=== PATIENT | male | born 1990 | race Two or more races ===

== ENCOUNTER 2024-02-08 03:49 | Inpatient (IN) | payer BC, SELFPAY ==
[2024-02-08] VITALS (7 sets, daily range): BP systolic 119–145; BP diastolic 80–91; PULSE 59–92; RESP 15–18; TEMP 36–36.8; O2SAT 97–100; BMI 32.5
--- NOTE | 2024-02-08 | ECG_ITS ---
Test Reason : ABD PAIN/CHEST PAIN Blood Pressure : / mmHG Vent. Rate : 064 BPM Atrial Rate : 064 BPM P-R Int : 212 ms QRS Dur : 092 ms QT Int : 354 ms P-R-T Axes : 006 027 024 degrees QTc Int : 365 ms Sinus rhythm with 1st degree A-V block Otherwise normal ECG No previous ECGs available Referred By: Generic ED Physician Electronically Signed By:LIDA SWARTZ MD
--- NOTE | ~2024-02-08 | US_ITS ---
EXAMINATION: US ABDOMEN LIMITED CLINICAL INFORMATION: Pain. COMPARISON: None available. TECHNIQUE: Real-time imaging of the right upper quadrant abdominal viscera. FINDINGS: PANCREAS: The visualized portions of the pancreas is within normal limits. The tail of the pancreas is obscured. LIVER: Normal. The liver is normal in size. The liver contour is normal. Parenchymal echogenicity is normal. No focal hepatic lesion. There is no intrahepatic biliary duct dilatation seen. GALLBLADDER: Multiple shadowing gallbladder calculi are seen. There is also a small amount of faintly echogenic nonshadowing material within the gallbladder consistent with sludge. There is borderline gallbladder wall thickening up to 3.4 mm. The patient did report tenderness when scanning the right upper quadrant. COMMON BILE DUCT: Normal in caliber measuring 0.3 cm in diameter. RIGHT KIDNEY: Normal. No hydronephrosis. No renal calculi or focal parenchymal lesions. The kidney measures 12.1 cm in maximum dimension. FREE FLUID: None. US/US abdomen limited IMPRESSION: Cholelithiasis with borderline gallbladder wall thickening and tenderness when scanning the right upper quadrant. Consider acute cholecystitis. Correlation needed.
[2024-02-08 04:04] LABS: MANUAL DIFF FLAG NO
[2024-02-08 04:06] LABS: Basophils Absolute Auto 0.1 X10*3/uL (0.0-0.2); Basophils Percent Auto 0.8 % (0-2); Eosinophils Absolute Auto 0.2 X10*3/uL (0.0-0.4); Eosinophils Percent Auto 2.2 % (0-4); Hematocrit 44.2 % (42.0-52.0); Hemoglobin 15.5 g/dl (14.0-18.0); Imm Gran Abs Auto 0.02 X10*3/uL (0.00-0.03); Imm Gran Pct Auto 0.3 % (0.0-0.4); Lymphocytes Absolute Auto 2.6 X10*3/uL (1.2-4.9); Lymphocytes Percent Auto 33.5 % (20-40); Mean Corpuscular HGB Conc 35.1 g/dl (31.0-36.0); Mean Corpuscular Hemoglobin 27.9 pg (27.0-33.0); Mean Corpuscular Volume 79.6 fL (80.0-98.0); Mean Platelet Volume 10.6 fL (9.4-12.4); Monocytes Absolute Auto 0.6 X10*3/uL (0.1-1.2); Monocytes Percent Auto 7.5 % (2-11); Neutrophils Absolute Auto 4.3 x10*3/uL (2.0-8.3); Neutrophils Percent Auto 55.7 % (45-73); Platelet Count 180 X10*3/uL (160-400); Red Blood Count 5.55 X10*6/uL (4.60-5.80); Red Cell Distribution Width 13.6 % (11.0-16.0); White Blood Count 7.8 X10*3/uL (4.8-10.8)
[2024-02-08 04:21] LABS: Alanine Aminotransferase 18 U/L (0-40); Albumin Level 4.1 g/dL (3.5-5.0); Alkaline Phosphatase 82 U/L (39-117); Anion Gap 13 (12-20); Aspartate Amino Transferase 16 U/L (5-37); Bilirubin Total 0.4 mg/dL (0.0-1.0); Blood Urea Nitrogen 14 mg/dL (9-16); Calcium 9.5 mg/dL (8.4-10.2); Carbon Dioxide 25 mmol/L (22-29); Chloride 104 mmol/L (96-108); Creatinine Clr Calc Pharmacy 162.3; Estimated Glomerular Filt Rate > 60; Glucose Random 92 mg/dL (60-115); Potassium 4.1 mmol/L (3.3-5.1); Sodium 138 mmol/L (135-145); Total Protein 7.8 g/dL (6.5-8.0)
--- NOTE | 2024-02-08 04:24 | PC.NURSE ---
pt from home, a&ox4, respirations even and unlabored, pt reporting onset of epigastric pain x12 hours, reports it started after eating lunch. pt denies chest pain at this time. pt denies n/v/d. 20G placed in left ac, labs obtained and sent.
[2024-02-08 04:27] LABS: Troponin-I High Sensitivity < 2.7 ng/L (<3.5-35.0)
--- NOTE | 2024-02-08 05:01 | ED.GENADULT ---
HPI - General Adult General Chief complaint: Abdominal Pain Stated complaint: abdominal pain Time Seen by Provider: 02/08/24 05:01 History of Present Illness ED Provider: Sarita MARQUEZ narrative: The patient is an ordinarily healthy 33-year-old male who has had upper abdominal pain, primarily in the right upper quadrant, that has been bothering him significantly over the last 3 days. The symptoms are exacerbated by eating. He says he has been having mild episodes of pain intermittently for a couple of weeks and more consistently over the last 3 days. No definite fever. No nausea or vomiting. No diarrhea. No history of any abdominal surgeries. Related Data Allergies Allergy/AdvReac Type Severity Reaction Status Date / Time No Known Allergies Allergy Verified 02/08/24 03:56 Review of Systems Review of Systems: Yes all other systems are reviewed and are negative [facility] Social History Social History Alcohol intake: current Alcohol intake frequency: holidays/special occasions only Smoked in Last 30 Days: No Use of substances other than those prescribed or required for medical reasons: No Advance Directives: No Advance Directives Information Provided: No Do you have a plan to hurt others: No Plan Physical Exam ED Vital Signs: Vital Signs - 24 hr 02/08/24 03:55 02/08/24 06:33 Temperature 98.2 F 98.0 F Pulse Rate 92 67 Respiratory Rate 18 15 Blood Pressure 145/83 H 126/89 Pulse Oximetry 100 97 Oxygen Delivery Method Room Air Room Air BMI result Body Mass Index 32.5 Const Other: The patient is a well-developed, healthy looking 33-year-old who was awake and alert, pleasant and cooperative. He does not appear in overt distress. HENMT Other: Face is symmetrical. Mucous membranes moist. Eyes Other: Pupils are round equal, conjunctivae clear Neck Other: Moving his neck easily Resp Effort & Inspection: normal respiratory effort Auscultation: clear to auscultation bilaterally Cardio Rate: regular rate Rhythm: regular rhythm Heart sounds: S1 normal heart sound present and S2 normal heart sound present GI Other: The patient has right upper quadrant abdominal tenderness. The epigastrium and the remainder of the abdomen seem nontender. Skin Other: Skin is dry and unremarkable Neuro Other: The patient is awake and alert with a normal mental status. Cranial nerves are grossly intact. He moves his extremities symmetrically and appropriately. He seems grossly neurologically intact. Extrem Other: Extremities are unremarkable. No peripheral edema. Medications Administered Generic Name Dose Route Start Last Admin Trade Name Freadams PRN Reason Stop Dose Admin Sodium Chloride 1,000 mls @ 999 mls/hr 02/08/24 07:15 02/08/24 07:24 Ns IV 02/08/24 08:15 999 mls/hr .Q1H1M AGNIESZKA Administration Discontinued Medications Generic Name Dose Route Start Last Admin Trade Name Holland PRN Reason Stop Dose Admin Ketorolac Tromethamine 10 mg 02/08/24 07:03 02/08/24 07:24 Ketorolac Tromethamine 15 Mg/Ml Vial IVPUSH 02/08/24 07:04 10 mg ONCE ONE Administration Sucralfate 1 gm 02/08/24 05:52 02/08/24 06:32 Sucralfate Oral Suspension 1 Gm/10 Ml Oral.Susp PO 02/08/24 05:53 1 gm ONCE ONE Administration Medical Decision Making Medical Decision Making [facility] Narrative: The patient is a very pleasant 33-year-old who describes episodes of postprandial right upper quadrant pain intermittently over the last couple of months and more significantly over the last 2 weeks. Tonight he presents with pain that has been constant since around 22:00. The patient's labs were unremarkable but he was fairly tender in the right upper quadrant. Fortunately an laboratory development technician was available to perform an ultrasound which shows cholelithiasis, borderline gallbladder wall thickening, and a positive sonographic Linda's. The patient was given ketorolac for his pain. Dr. Obregon of General surgery was consulted who came to see the patient and will be admitting the patient for further care. Lab Data 02/08/24 04:00 02/08/24 04:00 Labs: Lab Results 02/08/24 Range/Units 04:00 WBC 7.8 (4.8-10.8) X10*3/uL RBC 5.55 (4.60-5.80) X10*6/uL Hgb 15.5 (14.0-18.0) g/dl Hct 44.2 (42.0-52.0) % MCV 79.6 L (80.0-98.0) fL MCH 27.9 (27.0-33.0) pg MCHC 35.1 (31.0-36.0) g/dl RDW 13.6 (11.0-16.0) % Plt Count 180 (160-400) X10*3/uL MPV 10.6 (9.4-12.4) fL Immature Gran % (Auto) 0.3 (0.0-0.4) % Neut % (Auto) 55.7 (45-73) % Lymph % (Auto) 33.5 (20-40) % [place] % (Auto) 7.5 (2-11) % Eos % (Auto) 2.2 (0-4) % Baso % (Auto) 0.8 (0-2) % Lymph # (Auto) 2.6 (1.2-4.9) X10*3/uL [place] # (Auto) 0.6 (0.1-1.2) X10*3/uL Eos # (Auto) 0.2 (0.0-0.4) X10*3/uL Baso # (Auto) 0.1 (0.0-0.2) X10*3/uL Abs Immat Gran (auto) 0.02 (0.00-0.03) X10*3/uL Absolute Neuts (auto) 4.3 (2.0-8.3) x10*3/uL Absolute Nucleated RBC 0.000 (0.0-0.012) X10*3/uL Nucleated RBC % (auto) 0.0 (0.0-0.2) /100WBC Sodium 138 (135-145) mmol/L Potassium 4.1 (3.3-5.1) mmol/L Chloride 104 (96-108) mmol/L Carbon Dioxide 25 (22-29) mmol/L Anion Gap 13 (12-20) BUN 14 (9-16) mg/dL Creatinine 0.84 (0.5-1.4) mg/dL Estim Creat Clear Calc 162.3 Estimated GFR > 60 Random Glucose 92 (60-115) mg/dL Calcium 9.5 (8.4-10.2) mg/dL Total Bilirubin 0.4 (0.0-1.0) mg/dL AST 16 (5-37) U/L ALT 18 (0-40) U/L Alkaline Phosphatase 82 (39-117) U/L Troponin I High Sens < 2.7 (<3.5-35.0) ng/L C-Reactive Protein 0.57 H (< or = 0.50) mg/dL Total Protein 7.8 (6.5-8.0) g/dL Albumin 4.1 (3.5-5.0) g/dL Lipase 43 (8-78) U/L Discharge Plan Discharge Patient Disposition: Admitted As Inpatient Print Language: Taiwanese
[2024-02-08 05:27] LABS: C Reactive Protein 0.57 mg/dL (< or = 0.50); Lipase 43 U/L (8-78)
[2024-02-08] MEDS: Sucralfate Oral Suspension 1 GM/10 ML ORAL.SUSP PO (06:32)
[2024-02-08] MEDS: 0.9 % Sodium Chloride 1,000 ML 999 ML IV (07:24)
[2024-02-08] MEDS: Ketorolac Tromethamine 15 MG/ML VIAL 10 MG IVPUSH (07:24)
--- NOTE | 2024-02-08 08:07 | PM.HPGS ---
History of Present Illness History of Present Illness Date of Service: 02/08/24 Chief complaint: Acute cholecystitis Narrative: Jose L Acevedo is a 33 year old male presenting with complaints of abdominal pain of 3 days' duration. The pain is mainly located in the epigastrium and right upper quadrant with radiation to the right back. He has had previous episodes of similar pain mainly in the epigastrium, never to the severity of his current episode. On presentation to the emergency department his pain was 10/10 in severity. Currently he is at 4/10 after receiving Toradol. He denies nausea, vomiting, fever or chills. Previous episodes developed several hours after eating greasy foods but resolved spontaneously. Workup in the emergency department revealed normal laboratories however an ultrasound of the abdomen revealed a gallbladder filled with gallstones as well as a stone at the neck of the gallbladder. There is moderate wall thickening without pericholecystic fluid. Common bile duct is normal. He has admitted to the surgical service for management of his acute cholecystitis due to cholelithiasis. Review of Systems Review of Systems: Yes all other systems are reviewed and are negative Gastrointestinal: Gastrointestinal: Reports abdominal pain, Denies constipation, Denies loose stools, Denies nausea and Denies vomiting PMFSH Social History Social History Alcohol intake: current Alcohol intake frequency: holidays/special occasions only Smoked in Last 30 Days: No Use of substances other than those prescribed or required for medical reasons: No Advance Directives: No Advance Directives Information Provided: No Do you have a plan to hurt others: No Plan Meds Allergies Allergy/AdvReac Type Severity Reaction Status Date / Time No Known Allergies Allergy Verified 02/08/24 03:56 Active Medications: Current Medications Calcium Carbonate (Calcium Carbonate 750 Mg Tab.Chew) 750 mg PO Q4H PRN PRN Reason: Heartburn Hydromorphone HCl (Hydromorphone Hcl 0.5 Mg/0.5 Ml Syringe) 0.5 mg IVPUSH Q3H PRN; Protocol PRN Reason: Pain, Severe (Pain Scale 7-10) Sodium Chloride (Ns) 1,000 mls @ 999 mls/hr IV .Q1H1M AGNIESZKA Stop: 02/08/24 08:15 Last Admin: 02/08/24 07:24 Dose: 999 mls/hr Acetaminophen (Ofirmev) 1,000 mg in 100 mls @ 400 mls/hr IV Q6H [facility] Stop: 02/09/24 02:29 Dextrose/Lactated Ringer's (D5lr) 1,000 mls @ 125 mls/hr IVCONT .Q8H [facility] Piperacillin Sod/Tazobactam (Sod 3.375 gm/ Sodium Chloride) 50 mls @ 100 mls/hr IV Q6H [facility] Magnesium Hydroxide (Milk Of Magnesia 30 Ml Oral.Susp) 30 ml PO DAILY PRN PRN Reason: Constipation Melatonin (Melatonin 3 Mg Tablet) 6 mg PO BEDTIME PRN PRN Reason: Insomnia Ondansetron HCl (Ondansetron Hcl 4 Mg/2 Ml Vial) 4 mg IVPUSH QID PRN PRN Reason: Nausea Oxycodone HCl (Oxycodone Hcl Immed Release 5 Mg Tablet) 5 mg PO Q6H PRN PRN Reason: Pain, Moderate(Pain Scale 4-6) Sodium Chloride (0.9 % Sodium Chloride Flush 3 Ml Syringe) 3 ml IVFLUSH QSHIFT [facility] Physical Exam Vital Signs: Vital Signs: Last Vital Signs Temp 98.0 F 02/08/24 06:33 Pulse 67 02/08/24 06:33 Resp 15 02/08/24 06:33 BP 126/89 02/08/24 06:33 Pulse Ox 97 02/08/24 06:33 O2 Del Method Room Air 02/08/24 06:33 BMI result Body Mass Index 32.5 Const: General: cooperative and no acute distress Nutritional Appearance: well nourished Orientation/consciousness: patient oriented x3 Limitations: no limitations HEENT: Head: Yes normocephalic and Yes atraumatic Ears: hearing grossly normal bilaterally Resp: Effort & Inspection: normal respiratory effort, no audible wheezes, no cough and no respiratory distress Cardio: Jugular venous distension: no JVD GI: Inspection: Yes normal to inspection Palpation (GI): Soft to palpation, Tenderness to palpation present (GI) in the RUQ and Linda's sign positive; with no rebound tenderness and Rovsing's sign negative, no guarding and not rigid Percussion: Yes normal to percussion Auscultation: normal bowel sounds Rectal Exam - Male: Yes deferred Skin: Other: Warm, dry, no rash, no jaundice Neuro: General: patient oriented x3 Extrem: General: Yes no clubbing, cyanosis or edema Results Results Labs: Short CBC 02/08/24 Range/Units 04:00 WBC 7.8 (4.8-10.8) X10*3/uL Hgb 15.5 (14.0-18.0) g/dl Hct 44.2 (42.0-52.0) % Plt Count 180 (160-400) X10*3/uL BMP 02/08/24 04:00 Sodium 138 Potassium 4.1 Chloride 104 Carbon Dioxide 25 BUN 14 Creatinine 0.84 Calcium 9.5 Liver Function 02/08/24 Range/Units 04:00 Total Bilirubin 0.4 (0.0-1.0) mg/dL AST 16 (5-37) U/L ALT 18 (0-40) U/L Alkaline Phosphatase 82 (39-117) U/L Albumin 4.1 (3.5-5.0) g/dL Assessment and Plan (1) Acute cholecystitis: Status: Acute Plan 33-year-old male patient presenting to the emergency department with complaints of right upper quadrant abdominal pain of 3 days' duration. Workup reveals gallstones at the neck of the gallbladder with moderate wall thickening. We discussed non operative management with diet restrictions verses laparoscopic/possible open cholecystectomy. I recommended admission for IV antibiotics with laparoscopic or possible open cholecystectomy in the a.m.. After discussion of the procedure, risks, and alternatives, he consents to the surgery. Quality Stroke Does the patient have a stroke diagnosis?: No VTE Prior VTE?: No VTE Risk Level:: Surgical - low VTE Device Contraindication: N/A - Device Ordered VTE Drug Contraindication: Treatment Not Indicated Procedures Date of Service Date of Service: 02/08/24
[2024-02-08] MEDS: Piperacillin Sodium/Tazobactam 3.375 GM in 0.9 % Sodium Chloride 50 ML IV ×3 (08:57→21:08)
--- NOTE | 2024-02-08 09:01 | PC.NURSE ---
per dr britt - no need to draw blood cultures prior to abx administration.
--- NOTE | 2024-02-08 09:05 | PHA.MEDREC ---
Pharmacy Consult ? Medication Reconciliation Pharmacy has completed the medication reconciliation.
[2024-02-08] MEDS: Dextrose 5 % and Lactated Ring 1,000 ML 125 ML IVCONT ×2 (09:49→18:11)
[2024-02-08] MEDS: oxyCODONE HCl Immed Release 5 MG TABLET PO (11:08)
[2024-02-08] MEDS: Acetaminophen 1,000 MG/100 ML PIGGYBACK 400 MG IV ×2 (13:27→20:20)
--- NOTE | 2024-02-08 14:17 | MHC.CM.PN ---
PT REPORTS HE LIVES WITH HIS PARENTS BUT ALSO STAYS WITH HIS GF MUCH OF THE TIME HE IS INDEPENDENT WITH CARE, HAS NO DME AND NO SERVICES PT DECLINES TO COMPLETE A HCP HE HAS NO PCP, LIST PROVIDED DCP: PT WILL DC HOME WITH NO SERVICES VIA PRIVATE TRANSPORT
[2024-02-09] VITALS (12 sets, daily range): BP systolic 110–140; BP diastolic 67–89; PULSE 60–79; RESP 16–20; TEMP 36–36.6; O2SAT 97–100
[2024-02-09] MEDS: Dextrose 5 % and Lactated Ring 1,000 ML 125 ML IVCONT ×3 (02:05→23:07)
[2024-02-09] MEDS: Acetaminophen 1,000 MG/100 ML PIGGYBACK 400 MG IV (02:07)
[2024-02-09] MEDS: Piperacillin Sodium/Tazobactam 3.375 GM in 0.9 % Sodium Chloride 50 ML IV ×2 (02:33→07:23)
[2024-02-09] MEDS: oxyCODONE HCl Immed Release 5 MG TABLET PO ×3 (07:22→22:28)
--- NOTE | 2024-02-09 12:21 | MHC.SHP ---
Pre-Procedural Eval Section A - 24 Hr Update-Section A only Date of Service: 02/09/24 The patient is an INPATIENT: Yes Changes since office visit: Yes Patient answered all questions; No Cold of Flu in the past 2 weeks, No New Medical Problems and No Changes in Medication The patient has been examined within 24 hours of the surgical procedure. The History & Physical has been completed within 30 days and I have reviewed it.: Yes Section B - Complete if H&P > 30 days Chief Complaint: Acute cholecystitis Allergies: Allergies Allergy/AdvReac Type Severity Reaction Status Date / Time No Known Allergies Allergy Verified 02/08/24 03:56 Plan Diagnosis/Plan: Unchanged I have reviewed the history and physical and performed a pertinent physical examination on my patient. No changes have occurred unless specified. Time Spent With Patient Time: Total time managing care of this patient today ____ minutes.
--- NOTE | 2024-02-09 13:07 | HO.ANESPROP2 ---
HPI - Anesthesia Eval Consult details Narrative: for lap cholecystectomy PMFSH Active Problems Active Problems: All Active Problems Acute cholecystitis (Acute) Family History Family history of problems with anesthesia: No Surgical History History of Problems with Anesthesia: No Social History Social History Alcohol intake: current Alcohol intake frequency: holidays/special occasions only Patient Tobacco Use Status: Never used Tobacco service: No Meds Allergies Allergy/AdvReac Type Severity Reaction Status Date / Time No Known Allergies Allergy Verified 02/08/24 03:56 Active Medications: Current Medications Calcium Carbonate (Calcium Carbonate 750 Mg Tab.Chew) 750 mg PO Q4H PRN PRN Reason: Heartburn Hydromorphone HCl (Hydromorphone Hcl 0.5 Mg/0.5 Ml Syringe) 0.5 mg IVPUSH Q3H PRN; Protocol PRN Reason: Pain, Severe (Pain Scale 7-10) Dextrose/Lactated Ringer's (D5lr) 1,000 mls @ 125 mls/hr IVCONT .Q8H [facility] Last Infusion: 02/09/24 10:42 Dose: Infused Piperacillin Sod/Tazobactam (Sod 3.375 gm/ Sodium Chloride) 50 mls @ 100 mls/hr IV Q6H [facility] Last Infusion: 02/09/24 07:56 Dose: Infused Magnesium Hydroxide (Milk Of Magnesia 30 Ml Oral.Susp) 30 ml PO DAILY PRN PRN Reason: Constipation Melatonin (Melatonin 3 Mg Tablet) 6 mg PO BEDTIME PRN PRN Reason: Insomnia Ondansetron HCl (Ondansetron Hcl 4 Mg/2 Ml Vial) 4 mg IVPUSH QID PRN PRN Reason: Nausea Oxycodone HCl (Oxycodone Hcl Immed Release 5 Mg Tablet) 5 mg PO Q6H PRN PRN Reason: Pain, Moderate(Pain Scale 4-6) Last Admin: 02/09/24 07:22 Dose: 5 mg Sodium Chloride (0.9 % Sodium Chloride Flush 3 Ml Syringe) 3 ml IVFLUSH QSHIFT [facility] Last Admin: 02/09/24 07:24 Dose: Not Given Home Medications ?Medication ?Instructions ?Recorded ?Confirmed ?Last Taken ?Type ibuprofen 400 mg tablet 400 mg PO Q6H PRN Pain 02/08/24 02/08/24 Unknown History Exam Height,Weight and Vital Signs: Height 6 ft Weight 108.862 kg Last Vital Signs Temp 97.9 F 02/09/24 11:48 Pulse 71 02/09/24 11:48 Resp 16 02/09/24 11:48 BP 140/89 H 02/09/24 11:48 Pulse Ox 100 02/09/24 11:48 O2 Del Method Room Air 02/09/24 11:48 Pertinent Lab Results Pertinent Lab Results: Laboratory Tests 02/08/24 04:00 WBC 7.8 RBC 5.55 Hgb 15.5 Hct 44.2 MCV 79.6 L MCH 27.9 MCHC 35.1 RDW 13.6 Plt Count 180 MPV 10.6 Immature Gran % (Auto) 0.3 Neut % (Auto) 55.7 Lymph % (Auto) 33.5 [place] % (Auto) 7.5 Eos % (Auto) 2.2 Baso % (Auto) 0.8 Lymph # (Auto) 2.6 [place] # (Auto) 0.6 Eos # (Auto) 0.2 Baso # (Auto) 0.1 Abs Immat Gran (auto) 0.02 Absolute Neuts (auto) 4.3 Absolute Nucleated RBC 0.000 Nucleated RBC % (auto) 0.0 Sodium 138 Potassium 4.1 Chloride 104 Carbon Dioxide 25 Anion Gap 13 BUN 14 Creatinine 0.84 Estim Creat Clear Calc 162.3 Estimated GFR > 60 Random Glucose 92 Calcium 9.5 Total Bilirubin 0.4 AST 16 ALT 18 Alkaline Phosphatase 82 Troponin I High Sens < 2.7 C-Reactive Protein 0.57 H Total Protein 7.8 Albumin 4.1 Lipase 43 Airway Mallampati Class: II (has toungue piercings one each side at the tip, pt asked to try remove. ) TM Dist: >3cm Neck ROM: Full Heart: rrr Lungs: cta Assessment and Plan Assessment Anesthesia Assessment: Anesthesia Plan Discussed Final Anesthetic Review Family History of Problems with Anesthesia: No History of Problems with Anesthesia: No NPO: Yes ASA Class: I Final Preanesthetic Review: No Changes in Pt Med Stat, Meds/Allgs Chart Reviewed, Consent Obtained/Reviewed and Anes Risks/Benef Reviewed Patient Risk: Low Procedure Risk: Low Anesthetic Plan Anesthetic Plan: GA Disposition: Standard PACU
--- NOTE | 2024-02-09 15:40 | P.OP_ITS ---
Operative Note Operative Note Date of Service: 02/09/24 Narrative: Preoperative diagnosis: Acute cholecystitis, cholelithiasis Postoperative diagnosis: Same Procedure: Laparoscopic cholecystectomy Surgeon: Alberto Obregon MD Director Teen Post: JESS Charlton Anesthesia: General endotracheal Indications for procedure: 33-year-old male patient presenting with complaints of abdominal pain in the right upper quadrant found to have tenderness in the right upper quadrant with a positive Linda sign. Laboratories revealed normal WBC however ultrasound was consistent with cholelithiasis at the neck of the gallbladder with a thickened gallbladder wall. There is tenderness with palpation of the gallbladder. Operative findings: Acute cholecystitis with a gallstone noted at the neck of the gallbladder. Specimen: gallbladder Estimated blood loss: 3 mL Complications: None Procedure details: Patient was brought to the OR and placed in a supine position. After administering general anesthesia the patient's abdomen was prepped with ChloraPrep and draped in a sterile fashion. A surgical time-out was called the consent confirmed. Patient received preoperative antibiotics and Venodyne boots were in place. Local anesthesia consisting of 0.5% Sensorcaine without epinephrine was infiltrated in a periumbilical region. A 5 mm incision was made above the umbilicus in a transverse fashion. The Veress needle was then inserted while elevating abdominal cavity with towel clips. After positive drop test the abdomen was insufflated to a pressure of 15 mm of mercury. The Veress needle was then removed and a 5 mm trocar inserted. The camera was inserted in the abdomen explored. A 12 mm trocar was then placed in the epigastrium. Two 5 mm trocars placed in the right upper quadrant by the mobile unit assistant. The patient was placed in reverse Trendelenburg positioning and rotated to the left. The gallbladder was grasped with the fundus and retracted cephalad by the mobile unit assistant. The infundibulum was then grasped and retracted away from the liver bed, also by the mobile unit assistant. The Dolphin dissected was then used by the surgeon to dissect the peritoneum off the infundibulum to reveal the junction with the cystic duct. Cystic artery was noted slightly medial and posterior to the cystic duct. After obtaining a critical view the cystic duct was doubly clipped and divided. The cystic artery was then doubly clipped and divided. The gallbladder was then dissected off the liver bed using electrocautery with an L hook. Hemostasis was assured all times using the electrocautery. When the gallbladder is completely dissected off the liver bed was placed in an Endo-Catch bag and brought out through the epigastric incision. The gallbladder was sent to pathology for further examination. The abdomen was then re-examined. The liver bed was irrigated and suctioned dry. No bleeding or bile leak could be identified. CO2 was then evacuated and all trocars removed. Fascia was closed at the epigastric incision using a [id number] 0 Polysorb suture. Skin was closed in all incisions using a subcuticular 4 0 Polysorb suture by both the surgeon and mobile unit assistant. Sterile dressings consisting of Steri-Strips, 2 x 2 gauze, and Tegaderm were then applied. The patient tolerated the procedure well. Sponge instrument and needle counts reported as correct. The patient was transferred to PACU in stable condition.
--- NOTE | 2024-02-09 17:49 | PC.NURSE ---
1630- pt returned to unit from PACU. Drowsy but arousable. Abdominal dressings CDI. Denies pain at this time. Ambulated to BR to void. DTV #[id number]
[2024-02-10] MEDS: Acetaminophen 325 MG TABLET 975 MG PO (03:51)
[2024-02-10 04:00] VITALS: BP 130/98; PULSE 92; RESP 16; TEMP 36.2; O2SAT 100
[2024-02-10 04:51] VITALS: RESP 18
[2024-02-10] MEDS: Dextrose 5 % and Lactated Ring 1,000 ML 125 ML IVCONT (07:21)
[2024-02-10] MEDS: 0.9 % Sodium Chloride Flush 3 ML SYRINGE IVFLUSH (07:22)
[2024-02-10 07:40] VITALS: BP 132/82; PULSE 69; RESP 18; TEMP 36.4; O2SAT 100
--- NOTE | 2024-02-10 07:45 | P.PNGS_ITS ---
Subjective Subjective Date of Service: 02/10/24 <Luci Jameson PA-C - Last Filed: 02/10/24 07:47> 02/10/24 <Alberto Obregon MD - Last Filed: 02/10/24 07:48> Interval history: Feels well, sore at incisions. Tolerating solid diet. OOB and ambulating without difficulty. Wants to go home. No BM in a few days. <Luci Jameson PA-C - Last Filed: 02/10/24 07:47> Physical Exam 2 Vital Signs: Vital Signs: Last Vital Signs Temp 97.6 F 02/10/24 07:40 Pulse 69 02/10/24 07:40 Resp 18 02/10/24 07:40 BP 132/82 02/10/24 07:40 Pulse Ox 100 02/10/24 07:40 O2 Del Method Room Air 02/10/24 07:40 O2 Flow Rate 4 02/09/24 15:59 BMI result Body Mass Index 32.5 <Luci Jameson PA-C - Last Filed: 02/10/24 07:47> Const: General: comfortable, no acute distress and alert <Luci Jameson PA-C - Last Filed: 02/10/24 07:47> Resp: Effort & Inspection: normal respiratory effort <Luci Jameson PA-C - Last Filed: 02/10/24 07:47> GI: Inspection: No distended and Yes incision (dressings clean and intact) <Luci Jameson PA-C - Last Filed: 02/10/24 07:47> Palpation (GI): Tenderness to palpation present (GI) (mild incisional) and no guarding <Luci Jameson PA-C - Last Filed: 02/10/24 07:47> Skin: General skin exam: no rashes or lesions noted and no jaundice < HARDIK Charlton Last Filed: 02/10/24 07:47> Objective Data Active Medications Calcium Carbonate (Calcium Carbonate 750 Mg Tab.Chew) 750 mg PO Q4H PRN PRN Reason: Heartburn Hydromorphone HCl (Hydromorphone Hcl 0.5 Mg/0.5 Ml Syringe) 0.5 mg IVPUSH Q3H PRN; Protocol PRN Reason: Pain, Severe (Pain Scale 7-10) Dextrose/Lactated Ringer's (D5lr) 1,000 mls @ 125 mls/hr IVCONT .Q8H [facility] Last Admin: 02/10/24 07:21 Dose: 125 mls/hr Documented By: DORIAN Magnesium Hydroxide (Milk Of Magnesia 30 Ml Oral.Susp) 30 ml PO DAILY PRN PRN Reason: Constipation Melatonin (Melatonin 3 Mg Tablet) 6 mg PO BEDTIME PRN PRN Reason: Insomnia Ondansetron HCl (Ondansetron Hcl 4 Mg/2 Ml Vial) 4 mg IVPUSH QID PRN PRN Reason: Nausea Oxycodone HCl (Oxycodone Hcl Immed Release 5 Mg Tablet) 5 mg PO Q6H PRN PRN Reason: Pain, Moderate(Pain Scale 4-6) Last Admin: 02/09/24 22:28 Dose: 5 mg Documented By: CONI Sodium Chloride (0.9 % Sodium Chloride Flush 3 Ml Syringe) 3 ml IVFLUSH QSHIFT [facility] Last Admin: 02/10/24 07:22 Dose: 3 ml Documented By: DORIAN <Luci Jameson PA-C - Last Filed: 02/10/24 07:47> Labs CBC & Chem 7: 02/08/24 04:00 02/08/24 04:00 <Luci Jameson PA-C - Last Filed: 02/10/24 07:47> Procedures Date of Service Date of Service: 02/10/24 <Luci Jameson PA-C - Last Filed: 02/10/24 07:47> 02/10/24 <Alberto Obregon MD - Last Filed: 02/10/24 07:48> Progress Note: A&P Assessment and plan (1) Acute cholecystitis: Status: Acute <Luci Jameson PA-C - Last Filed: 02/10/24 07:47> Assessment and Plan: POD #1 s/p lap aubrie. Doing well post op. Good pain control, tolerating solid diet. Abd benign with appropriate post op tenderness. Stable for dc to home today. F/u in office in 1 week. Dc on stool softener. <Luci Jameson PA-C - Last Filed: 02/10/24 07:47> Time Spent With Patient Time: Total time managing care of this patient today ____ minutes. <Luci Jameson PA-C - Last Filed: 02/10/24 07:47> Quality Stroke Does the patient have a stroke diagnosis?: No <Luci Jameson PA-C - Last Filed: 02/10/24 07:47> VTE Prior VTE?: No <Luci Jameson PA-C - Last Filed: 02/10/24 07:47> VTE Risk Level:: Surgical - low <Luci Jameson PA-C - Last Filed: 02/10/24 07:47> VTE Device Contraindication: N/A - Device Ordered <Luci Jameson PA-C - Last Filed: 02/10/24 07:47> VTE Drug Contraindication: Treatment Not Indicated <Luci Jameson PA-C - Last Filed: 02/10/24 07:47>
--- NOTE | 2024-02-10 07:46 | PM.PNGS ---
Subjective Subjective Date of Service: 02/10/24 Interval history: Patient reports some incisional pain but otherwise feels well. He was able to tolerate food yesterday without nausea or vomiting. Physical Exam Vital Signs: Vital Signs: Last Vital Signs Temp 97.6 F 02/10/24 07:40 Pulse 69 02/10/24 07:40 Resp 18 02/10/24 07:40 BP 132/82 02/10/24 07:40 Pulse Ox 100 02/10/24 07:40 O2 Del Method Room Air 02/10/24 07:40 O2 Flow Rate 4 02/09/24 15:59 BMI result Body Mass Index 32.5 Const: General: no acute distress Nutritional Appearance: well nourished Resp: Effort & Inspection: normal respiratory effort GI: Other: Trocar incisions are clean and intact. Abdomen is otherwise soft and nondistended. Extrem: General: No edema Objective Data Active Medications Calcium Carbonate (Calcium Carbonate 750 Mg Tab.Chew) 750 mg PO Q4H PRN PRN Reason: Heartburn Hydromorphone HCl (Hydromorphone Hcl 0.5 Mg/0.5 Ml Syringe) 0.5 mg IVPUSH Q3H PRN; Protocol PRN Reason: Pain, Severe (Pain Scale 7-10) Dextrose/Lactated Ringer's (D5lr) 1,000 mls @ 125 mls/hr IVCONT .Q8H [facility] Last Admin: 02/10/24 07:21 Dose: 125 mls/hr Documented By: DORIAN Magnesium Hydroxide (Milk Of Magnesia 30 Ml Oral.Susp) 30 ml PO DAILY PRN PRN Reason: Constipation Melatonin (Melatonin 3 Mg Tablet) 6 mg PO BEDTIME PRN PRN Reason: Insomnia Ondansetron HCl (Ondansetron Hcl 4 Mg/2 Ml Vial) 4 mg IVPUSH QID PRN PRN Reason: Nausea Oxycodone HCl (Oxycodone Hcl Immed Release 5 Mg Tablet) 5 mg PO Q6H PRN PRN Reason: Pain, Moderate(Pain Scale 4-6) Last Admin: 02/09/24 22:28 Dose: 5 mg Documented By: CONI Sodium Chloride (0.9 % Sodium Chloride Flush 3 Ml Syringe) 3 ml IVFLUSH QSHIFT [facility] Last Admin: 02/10/24 07:22 Dose: 3 ml Documented By: DORIAN Labs 02/08/24 04:00 02/08/24 04:00 Procedures Date of Service Date of Service: 02/10/24 Progress Note: A&P Assessment and plan (1) Acute cholecystitis: Status: Acute Plan Pod 1 following laparoscopic cholecystectomy for acute cholecystitis due to cholelithiasis. Patient tolerated the procedure well and his wounds nicely. He was able to tolerate A regular diet without nausea or vomiting. He should continue to avoidting greater than 10 lb for 2 weeks. He will return to the office in 1 week. I recommended a low-fat diet for 1 month. He should call the office for fever, chills, nausea vomiting or other concerns. Time Spent With Patient Time: Total time managing care of this patient today ____ minutes. Quality Stroke Does the patient have a stroke diagnosis?: No VTE Prior VTE?: No VTE Risk Level:: Surgical - low VTE Device Contraindication: N/A - Device Ordered VTE Drug Contraindication: Treatment Not Indicated
--- NOTE | 2024-02-10 08:33 | MHC.CM.PN ---
pt dcd home self care
--- NOTE | 2024-02-10 09:45 | PM.DS ---
DS: Providers Provider Date of Service: 02/10/24 Date of admission: 02/08/24 08:02 Date of discharge: 02/10/24 Primary care physician: Omar Physician Attending physician on admission: Alberto Obregon Attending physician on discharge: Alberto Obregon DS: Diagnosis Discharge Diagnosis (1) Acute cholecystitis: Status: Acute DS: Summary Hospital Course Hospital Course: HPI AT ADMISSION: Jose L Acevedo is a 33 year old male presenting with complaints of abdominal pain of 3 days' duration. The pain is mainly located in the epigastrium and right upper quadrant with radiation to the right back. He has had previous episodes of similar pain mainly in the epigastrium, never to the severity of his current episode. On presentation to the emergency department his pain was 10/10 in severity. Currently he is at 4/10 after receiving Toradol. He denies nausea, vomiting, fever or chills. Previous episodes developed several hours after eating greasy foods but resolved spontaneously. Workup in the emergency department revealed normal laboratories however an ultrasound of the abdomen revealed a gallbladder filled with gallstones as well as a stone at the neck of the gallbladder. There is moderate wall thickening without pericholecystic fluid. Common bile duct is normal. HOSPITAL COURSE: The patient was admitted to the surgical service for further treatment of the acute cholecystitis. Admission for IV antibiotics with laparoscopic or possible open cholecystectomy in the a.m. was recommended. He elected to proceed with laparoscopic cholecystectomy, possible open and was added onto the OR schedule for the following day. On 02/09/24, a laparoscopic cholecystectomy was performed by Dr. Obregon without complication. The patient tolerated the procedure well. He had an uncomplicated recovery course. On POD #1, he felt well and was tolerating a solid diet without nausea or vomiting, had good pain control and was ambulating without difficulty. He was hemodynamically stable. His abdomen was benign with appropriate post op tenderness and clean and intact dressings. He felt ready for discharge. He was discharged to home on 02/10/24 in stable condition. He is to follow up in the office in 1 week. Status at Discharge Functional status at discharge: independent ambulation Overall status at discharge: patient is progressing back to baseline Time Attestation Discharge Coordination Time (in mins): 30 Quality: Safe Use of Opioids Does Pt have an Active Cancer Diagnosis on the Problem List?: No Quality: Stroke Does the patient have a stroke diagnosis?: No Physical Exam Vital Signs: Vital Signs: Last Vital Signs Temp 97.6 F 02/10/24 07:40 Pulse 69 02/10/24 07:40 Resp 18 02/10/24 07:40 BP 132/82 02/10/24 07:40 Pulse Ox 100 02/10/24 07:40 O2 Del Method Room Air 02/10/24 07:40 O2 Flow Rate 4 02/09/24 15:59 BMI result Body Mass Index 32.5 Const: General: comfortable, no acute distress and alert Orientation/consciousness: patient oriented x3 Resp: Effort & Inspection: normal respiratory effort GI: Inspection: No distended and Yes incision (dressings c/d/i) Palpation (GI): Soft to palpation, Tenderness to palpation present (GI) (mild incisional) and no guarding Skin: General skin exam: no rashes or lesions noted and no jaundice Neuro: General: patient oriented x3 and moves all extremities DS: Data Data Completed and Pending Pending studies at discharge: Pending at discharge 02/09/24 15:10 Surgical [PTH] Routine Discharge Plan Discharge Anticipated Discharge Date/Time: 02/10/24 07:42 Patient Disposition: Home, Self-Care Discharge Diagnosis: s/p laparoscopic cholecystectomy Referrals: Alberto Obregon MD [Physician] - 1 Week PhysicianOmar [Primary Care Provider] - 1 Week Discharge Medications: New oxycodone 5 mg tablet 5 mg PO Q4H PRN (Reason: pain (scale score 7-10)) Qty: 24 0RF Rx Instructions: Partial Fill upon patient request. docusate sodium [Colace] 100 mg capsule 100 mg PO BID Qty: 30 0RF Continued ibuprofen 400 mg Tablet 400 mg PO Q6H PRN (Reason: Pain) Discharge Orders: Discharge Order (Routine); Ordered 02/10/24 Ordered By: Luic Jameson Diet: Advance to usual diet Activity on Discharge: No heavy lifting Stand Alone Forms: Patient Portal Discharge page, Work/School Release Print Language: Vietnamese Activity Restrictions/Additional Instructions: If the incision area is tender, you may apply an ice pack for short intervals (No more than 20 minutes on, followed by at least 20 minutes off). Do not apply heat. Do not use creams, lotions, or topical antibiotics. Ok to shower. Remove clear dressings 3 days following your procedure. You have steri strips (small white cloth strips) covering your incision- these will fall off ~1 week. No heavy lifting (>10lbs) or strenuous activity! Take Tylenol Extra-strength 1-2 tabs every 6 hours for the first day, then as needed. Oxycodone every 6-8 hours as needed for pain. Colace 100 mg every day as needed for constipation. Follow up in office with Dr. Obregon in 1 week. ([phone]) Call Your Doctor If: -Your temperature exceeds 101.5? F -You experience excessive pain or swelling -You have an unexpected reaction to medication -You have excessive bleeding -You experience continued vomiting/nausea -Your incision begins to separate -Your incision shows signs of infection such as increased redness, swelling, excessive pain, drainage (light blood or clear fluid is normal) or heat Care Plan Goals: Return to baseline health and resume normal activities following recovery period. Health Concerns: acute cholecystitis Plan of Treatment: s/p lap aubrie f/u in office in 1 week Assessment: Doing well post op
--- NOTE | 2024-02-10 10:21 | PC.NURSE ---
Patient discharged by production support managerFELA Decker
--- NOTE | 2024-02-10 14:06 | HO.POSTANES ---
Post Anesthesia Evaluation Post Anesthesia Evaluation Date of Service: 02/09/24 Vital Signs: Vital Signs Temp Pulse Resp BP Pulse Ox O2 Del Method 02/10/24 07:40 97.6 F 69 18 132/82 100 Room Air 02/10/24 04:51 18 02/10/24 04:00 97.1 F 92 16 130/98 H 100 Room Air Anesthesia: General Mental Status: Awake Pain Control: Satisfactory Nausea/Vomiting: None Hydration: Adequate Anesthesia-Related Issues: No Anes. Related Issues
== END 2024-02-10 09:55 | disposition home or self-care (01) | DRG 263 ==
LOC: HO.ED 08:02 → HO.EDOVER 08:08 → HO.S3 09:09
PROVIDERS: Admitting Provider Surgery; Emergency Provider Emergency Medicine; Visit Provider Surgery
PROC: 0FT44ZZ Resection of Gallbladder, Percutaneous Endoscopic Approach (ICD-10-PCS; CPT 47562; principal; 2024-02-09 14:00)
DX: K80.00 Calculus of gallbladder with acute cholecystitis without obstruction (principal)
CPT/HCPCS: 36415; 76705; 80053; 83690; 84484; 85025; 86140; 88304; 93005; 99285; J0131; J1100; J1885; J2250; J2405; J2543; J2704; J3010

== ENCOUNTER → 2024-02-08 04:04 | Outpatient (BNV) | payer BC, SELFPAY | PROVIDERS: Admitting Provider Surgery; Emergency Provider Emergency Medicine; Visit Provider Internal Medicine Cardiovascular Disease | DX: I44.0 Atrioventricular block, first degree (principal) | CPT/HCPCS: 93010 ==

== ENCOUNTER → 2024-02-08 08:02 | Outpatient (BNV) | payer BC, SELFPAY | PROVIDERS: Admitting Provider Surgery; Emergency Provider Emergency Medicine; Visit Provider Surgery | DX: K81.0 Acute cholecystitis (principal) | CPT/HCPCS: 47562; 99024; 99222 ==

== ENCOUNTER 2024-02-17 14:44 | Outpatient (AMB) | payer BC, SELFPAY ==
--- NOTE | 2024-02-17 15:03 | A.OFFVIS_ITS ---
Intake Visit Reasons: s/p Cholecystectomy Laparoscopic Intake Note: Patient is seen in office for post op assessment post laparoscopic cholecystectomy. Pt c/o: ? open wound, reports bloody discharge. Op:02/09/24 [employer] Loss Prevention Specialist Required: No Accompanied by: Other Relationship Allergies No Known Allergies Allergy (Verified 02/17/24 15:05) Medication List - Last Reconciled 02/20/24 by Alberto Obregon MD docusate sodium (Colace) 100 mg PO BID ibuprofen 400 mg PO Q6H PRN HPI Comments Details: 33-year-old male returning 1 week following laparoscopic cholecystectomy for acute cholecystitis. He tolerated the procedure well and denies any current abdominal pain. He did note some bleeding from his epigastric incision. [facility] Surgical History Hx laparoscopic cholecystectomy (02/09/24) Social History Alcohol intake: current Alcohol intake frequency: holidays/special occasions only Patient Tobacco Use Status: Never used Tobacco service: No Physical Exam Const General: no acute distress Nutritional Appearance: well nourished Orientation/consciousness: patient oriented x3 Eyes Sclerae: sclerae normal GI Other: Trocar incisions are clean and intact. Incision in the epigastrium is healing. Steri-Strips were replaced. No evidence of wound infection. Inspection: Yes normal to inspection Palpation (GI): Soft to palpation, nontender, no guarding and not rigid Neuro General: patient oriented x3 Assessment & Plan Assessment & Plan (1) Acute cholecystitis: Code(s): K81.0 - Acute cholecystitis Category: Medical Plan Patient returns following laparoscopic cholecystectomy 1 week ago. He tolerated the procedure well his wounds are healing nicely. He should follow up as needed. Should avoid lifting greater than 10 lb for 1 more week after which he may resume normal activity. Coding Level of Care Code Global (30820) Diagnoses Acute cholecystitis K81.0
== END 2024-02-17 15:21 | disposition home or self-care (01) ==
PROVIDERS: Visit Provider Surgery
DX: K81.0 Acute cholecystitis (principal)
CPT/HCPCS: 99024

== ENCOUNTER → 2024-02-17 14:44 | Outpatient (BNVA) | payer BC, SELFPAY | PROVIDERS: Visit Provider Surgery ==

== ENCOUNTER 2025-04-04 20:55 | Inpatient (IN) | payer BC, SELFPAY ==
--- NOTE | ~2025-04-04 | CT_ITS ---
CLINICAL HISTORY: FUO CT chest with contrast. CT abdomen and pelvis with and without contrast. Comparison: None provided Findings: CT chest: The thyroid gland appears normal. Mildly enlarged right hilar lymph node measures 1.3 cm in short axis (axial image 29 of series 9). The heart is normal in size. There is no pericardial effusion. Right lower lobe consolidation and ground-glass opacities are present. CT abdomen and pelvis: The liver is enlarged in size with the right hepatic lobe measuring 19.3 cm in length. Cholecystectomy clips are present. The spleen is enlarged in size, measuring 16.9 cm in AP dimension. The pancreas, bilateral adrenal glands, and bilateral kidneys appear within normal limits. The urinary bladder appears normal. There is no adenopathy. There is no evidence of bowel obstruction. The appendix appears normal. There is no pneumoperitoneum or ascites. Bones/soft tissue: Small foci of air are seen in the lower back subcutaneous tissue, likely iatrogenic. No acute osseous abnormality is identified. No aggressive lytic or blastic lesion is seen. IMPRESSION: 1. Right lower lobe pneumonia. 2. Mildly enlarged right hilar lymph node. 3. Hepatosplenomegaly. This document has been electronically signed by: Akua Freeman on 04/05/2025 07:28:41
--- NOTE | ~2025-04-04 | CT_ITS ---
CLINICAL HISTORY: headache CT head without contrast Comparison: None provided Findings: No intra-axial mass, midline shift, hydrocephalus, or acute hemorrhage. No significant atrophy-like change or white matter disease. Suggestion of slightly decreased parenchymal low-attenuation in the occipital region for instance on series 3, image 19 and series 8, image 90. The visualized paranasal sinuses and mastoid air cells are normal. The orbits are within normal limits. There is no acute fracture. IMPRESSION: 1. No acute intracranial findings. Specifically, no evidence of acute intracranial hemorrhage, mass effect or midline shift. 2. Suggestion of slightly decreased parenchymal attenuation in the posterior occipital region. This could be artifactual however if clinically indicated, MRI may be considered to further evaluate this. This document has been electronically signed by: Ava Bernard MD on 04/04/2025 22:33:48
[2025-04-04 21:04] VITALS: BP 132/82; PULSE 99; RESP 17; TEMP 36.8; O2SAT 98; BMI 32.8
--- NOTE | 2025-04-04 21:37 | ED_ITS ---
HPI - General Adult General Chief complaint: Headache Stated complaint: pressure in head; upset stomach (can't eat) Time Seen by Provider: 04/05/25 02:46 Source: patient Mode of arrival: ambulatory Limitations: no limitations History of Present Illness ED Provider: Dr. Candice Vazquez HPI narrative: 34-year-old male with history of migraine headaches presenting with global headache that is been ongoing for the last 2 days. Has been taking Excedrin for headaches without relief. Admits that his headaches normally respond well to NSAIDs. Describes this headache as 1 of the worst headaches of his life. Denies associated fever but does admit he has a slightly stiff neck. Pain is worse with movement. Denies associated photophobia. Denies associated nausea. States that this headache does not feel like his normal migraine. Denies recent illness including cough or cold-type symptoms, chest pain, difficulty breathing, abdominal pain, nausea or vomiting, bowel changes, urinary complaints, skin rashes, known sick contacts or travel Related Data Home Medications ?Medication ?Instructions ?Recorded ?Confirmed ibuprofen 400 mg tablet 200 mg PO BID PRN Headache 0 02/08/24 04/05/25 Previous Rx's ?Medication ?Instructions ?Recorded amoxicillin 875 mg-potassium 1 tab PO BID 5 days #10 t abs 04/05/25 clavulanate 125 mg tablet azithromycin 500 mg tablet 500 mg PO DAILY 5 days #5 t abs 04/05/25 Allergies Allergy/AdvReac Type Severity Reaction Status Date / Time No Known Allergies Allergy Verified 04/04/25 21:06 Review of Systems 2 Review of Systems: as per HPI, full review of systems performed and negative but for the above mentioned pertinent positives and negatives. PMFSH Past Medical History Medical History Migraine Colitis Surgical History Hx laparoscopic cholecystectomy (02/09/24) Social History Social History Alcohol intake: current Alcohol intake frequency: holidays/special occasions only Patient Tobacco Use Status: Never used Tobacco service: No Physical Exam ED Exam Exam: GENERAL: Ill-Appearing, appears uncomfortable. SKIN: Normal skin color for ethnicity, warm, dry, no rashes noted. HEENT:? Normocephalic, atraumatic, no stridor, dry mucous membranes, dentition intact, EOMI. NECK: Soft, supple, limited ROM secondary to pain, slight hypertonicity of the trapezius bilaterally, midline structures nontender, no step-offs, no deformities, no lymphadenopathy. CHEST: Heart regular tachycardia, no murmurs, symmetric chest rise and fall. PULMONARY: Clear to auscultation bilaterally, diminished at the bases, no labored breathing, no wheezes/rhales/rhonchi. ABDOMINAL: Soft, nondistended, nontender, positive bowel sounds in all quadrants. : Deferred. MUSCULOSKELETAL: Normal tone, full range of motion, no deformities, no peripheral edema. NEURO: Alert and oriented x3, CN II through XII intact, equal strength and sensation bilateral upper and lower extremities, no focal neurologic deficits.? PSYCHIATRIC: Flat affect, fluid speech, good eye contact and appropriate demeanor. Vital Signs: Vital Signs - 24 hr 04/04/25 21:04 04/05/25 02:26 04/05/25 05:01 Temperature 98.3 F 102.1 F H Pulse Rate 99 95 93 Respiratory Rate 17 16 Blood Pressure 132/82 134/84 104/68 Pulse Oximetry 98 98 96 Oxygen Delivery Method Room Air Room Air Room Air BMI result Body Mass Index 32.8 Course Course Course Narrative: RME: 34 year male history of migraines presents to ED for headache without any new trauma. Patient denies any chest pain or shortness of breath. Patient is unable to follow up with neurologist and no relief with Motrin. NIH score is 0. Head CT labs ordered Medications Administered Discontinued Medications Generic Name Dose Route Start Last Admin Trade Name Freq PRN Reason Stop Dose Admin Ceftriaxone Sodium 2 gm 04/05/25 05:02 04/05/25 05:08 Ceftriaxone Sodium 2 Gm Vial IVPUSH 04/05/25 05:03 2 gm ONCE ONE Administration Dexamethasone Sodium Phosphate 6 mg 04/05/25 05:00 04/05/25 05:08 Dexamethasone Sod Phosphate 10 Mg/Ml Vial IVPUSH 04/05/25 05:01 6 mg ONCE ONE Administration Diphenhydramine HCl 50 mg 04/05/25 03:37 04/05/25 04:13 Diphenhydramine Hcl 50 Mg/Ml Vial IVPUSH 04/05/25 03:38 50 mg ONCE ONE Administration Hydromorphone HCl 1 mg 04/05/25 05:00 04/05/25 06:15 Hydromorphone Hcl 1 Mg/Ml Syringe IVPUSH 04/05/25 05:01 1 mg ONCE ONE Administration Protocol Sodium Chloride 1,000 mls @ 999 mls/hr 04/05/25 03:45 04/05/25 05:19 Ns IV 04/05/25 04:45 Infused .Q1H1M AGNIESZKA Infusion Acetaminophen 1,000 mg in 100 mls @ 400 mls/hr 04/05/25 03:37 04/05/25 04:47 Ofirmev IV 04/05/25 03:51 Infused ONCE ONE Infusion Sodium Chloride 1,000 mls @ 999 mls/hr 04/05/25 05:15 04/05/25 07:23 Ns IV 04/05/25 06:15 Infused .Q1H1M AGNIESZKA Infusion Acyclovir Sodium 500 mg/ 110 mls @ 110 mls/hr 04/05/25 05:22 04/05/25 07:30 Dextrose IV 04/05/25 06:21 Infused ONCE ONE Infusion Acyclovir Sodium 280 mg/ 105.6 mls @ 110 mls/hr 04/05/25 07:36 04/05/25 10:04 Dextrose IV 04/05/25 08:35 Infused ONCE ONE Infusion Azithromycin 500 mg/ Sodium 250 mls @ 125 mls/hr 04/05/25 09:00 04/05/25 12:13 Chloride IV Infused Q24H AGNIESZKA Infusion Iohexol 85 ml 04/05/25 06:08 04/05/25 06:09 Iohexol 350 Mg/Ml 100 Ml Infus..Btl IV 04/05/25 06:09 85 ml ONCE ONE Administration Metoclopramide HCl 10 mg 04/05/25 03:37 04/05/25 04:14 Metoclopramide Hcl 10 Mg/2 Ml Vial IVPUSH 04/05/25 03:38 10 mg ONCE ONE Administration Sodium Chloride 3 ml 04/05/25 08:00 04/05/25 17:31 0.9 % Sodium Chloride Flush 3 Ml Syringe IVFLUSH Not Given QSHIFT AGNIESZKA Procedures Lumbar Puncture Time Out Performed: Yes Patient Position: upright Skin Prep: Povidone-Iodine 1% Local Anesthetic: lidocaine 1% Amount of anesthesia used (mL): 3 Spinal Needle Gauge: 20G Interspace Used: L3-L4 Fluid Initially Obtained: clear Complications: none Medical Decision Making Medical Decision Making [facility] Narrative: Patient presents with a chief complaint of headache. ? The differential diagnosis on this patient includes but is not limited to migraine headache, tension headache, cluster headache, subarachnoid hemorrhage, dissection, venous thrombosis, meningitis, sinusitis, bleeding or tumor.? Based on history and physical exam, appropriate work-up was initiated. ? Medicated with migraine cocktail for headache. Unfortunately, the patient spiked a fever during his ER stay, prompting question of meningitis given his worsening headaches and no other real source of infection. He has no URI symptoms, no cough, no GI symptoms or urinary complaints slightly elevated white blood cell count. Head CT is normal. Plan for lumbar puncture and admission for further care and evaluation. Initiated treatment with Rocephin and steroids. Differential Diagnosis Differential Diagnoses: The differential diagnosis associated with the presentation includes (as above) Admission/Observation Consideration of admission/observation: Escalation of care including admission/observation considered Consult Healthcare Provider Management of the patient was discussed with: Hospitalist Lab Data [facility] Lab Attestation statement: I reviewed the patient's lab results. 04/04/25 21:54 04/04/25 21:54 Labs: Lab Results 04/04/25 04/05/25 04/05/25 Range/Units 21:54 05:00 05:00 WBC 12.3 H (4.8-10.8) X10*3/uL RBC 5.39 (4.60-5.80) X10*6/uL Hgb 14.9 (14.0-18.0) g/dl Hct 42.9 (42.0-52.0) % MCV 79.6 L (80.0-98.0) fL MCH 27.6 (27.0-33.0) pg MCHC 34.7 (31.0-36.0) g/dl RDW 13.9 (11.0-16.0) % Plt Count 142 L (160-400) X10*3/uL MPV 9.8 (9.4-12.4) fL Immature Gran % (Auto) 0.2 (0.0-0.4) % Neut % (Auto) 78.2 H (45-73) % Lymph % (Auto) 12.1 L (20-40) % [place] % (Auto) 8.9 (2-11) % Eos % (Auto) 0.2 (0-4) % Baso % (Auto) 0.4 (0-2) % Lymph # (Auto) 1.5 (1.2-4.9) X10*3/uL [place] # (Auto) 1.1 (0.1-1.2) X10*3/uL Eos # (Auto) 0.0 (0.0-0.4) X10*3/uL Baso # (Auto) 0.1 (0.0-0.2) X10*3/uL Abs Immat Gran (auto) 0.03 (0.00-0.03) X10*3/uL Absolute Neuts (auto) 9.6 H (2.0-8.3) x10*3/uL Absolute Nucleated RBC 0.000 (0.0-0.012) X10*3/uL Nucleated RBC % (auto) 0.0 (0.0-0.2) /100WBC Sodium 136 (135-145) mmol/L Potassium 3.8 (3.3-5.1) mmol/L Chloride 101 (96-108) mmol/L Carbon Dioxide 25 (22-29) mmol/L Anion Gap 14 (12-20) BUN 8 L (9-16) mg/dL Creatinine 1.00 (0.5-1.4) mg/dL Estim Creat Clear Calc 135.6 Estimated GFR > 60 Random Glucose 104 (60-115) mg/dL Calcium 9.4 (8.4-10.2) mg/dL Magnesium 2.0 (1.6-2.6) mg/dL Total Bilirubin 1.0 (0.0-1.0) mg/dL AST 40 H (5-37) U/L ALT 53 H (0-40) U/L Alkaline Phosphatase 106 (39-117) U/L C-Reactive Protein 16.73 H (< or = 0.50) mg/dL Total Protein 8.3 H (6.5-8.0) g/dL Albumin 4.4 (3.5-5.0) g/dL Fld [place] DNA (PCR) CSF Tube Number 2 4 CSF Volume 2.0 ML CSF Appearance CLEAR CSF Color COLORLESS CSF WBC 2 MM*3 CSF RBC 0 MM*3 CSF Lymphocytes 100 % CSF Appearance (b) Clear, Colorless CSF Glucose 71 mg/dL CSF Total Protein 39.5 (15-45) mg/dL CSF C.neoform/gat PCR Not Detected (Not Detect.) CSF CMV DNA (PCR) Not Detected (Not Detect.) CSF Enterovirus (PCR) Not Detected (Not Detect.) CSF E. coli K1 (PCR) Not Detected (Not Detect.) CSF H. influenzae (PCR) Not Detected (Not Detect.) CSF HSV I (PCR) Not Detected (Not Detect.) CSF HSV II (PCR) Not Detected (Not Detect.) CSF HHV 6 (PCR) Not Detected (Not Detect.) CSF L.monocytogenes PCR Not Detected (Not Detect.) CSF N. meningitidis PCR Not Detected (Not Detect.) CSF Parechovirus (PCR) Not Detected (Not Detect.) CSF S. agalactiae (PCR) Not Detected (Not Detect.) CSF S. pneumoniae (PCR) Not Detected (Not Detect.) CSF VZV (PCR) Not Detected (Not Detect.) Lyme Disease DNA (PCR) NOT DETECTED (NOT DETECTED) Influenza Type A (PCR) NEGATIVE (Negative) Influenza Type B (PCR) NEGATIVE (Negative) RSV RNA Qual (PCR) NEGATIVE (Negative) SARS-CoV-2 RNA (RT-PCR) NEGATIVE (Negative) Radiology Impression Discussion of test interpretation with radiology: I have reviewed the radiologist's reading. Radiologist Impression: CT head without contrast Comparison: None provided Findings: No intra-axial mass, midline shift, hydrocephalus, or acute hemorrhage. No significant atrophy-like change or white matter disease. Suggestion of slightly decreased parenchymal low-attenuation in the occipital region for instance on series 3, image 19 and series 8, image 90. The visualized paranasal sinuses and mastoid air cells are normal. The orbits are within normal limits. There is no acute fracture. IMPRESSION: 1. No acute intracranial findings. Specifically, no evidence of acute intracranial hemorrhage, mass effect or midline shift. 2. Suggestion of slightly decreased parenchymal attenuation in the posterior occipital region. This could be artifactual however if clinically indicated, MRI may be considered to further evaluate this. This document has been electronically signed by: Ava Bernard MD on 04/04/2025 22:33:48 Independent Historian Clinical information obtained from an independent historian. History obtained from or confirmed by: Spouse Chronic Conditions Patient?s care impacted by: Other (migraine headaches) Critical Care Time Critical Care Time Critical Care Time: Yes Total Critical Care Time: 37 Attestation: CRITICAL CARE TIME: 37 minutes of critical care time was spent in direct patient care at the bedside or in the immediate area with this patient. Critical care was necessary to treat or prevent imminent or life-threatening deterioration of the following conditions acute febrile illness due to potential bacterial meningitis. This patient is high risk for decompensation and/or . This time was spent assessing and managing the patient, interpreting labs and imaging, coordinating care with other medical providers, gathering history from either the patient, their representatives, EMS or chart review, and discussing management with admitting team. Discharge Plan Discharge Clinical Impression: Acute febrile illness Headache Qualifiers: Headache type: unspecified Headache chronicity pattern: episodic headache I ntractability: not intractable Qualified Code(s): R51.9 - Headache, unspecified Patient Disposition: Admitted As Inpatient Interventions: Admission Worksheet (ED) Last Done: 04/05/25 07:43 ED Discharge Assessment Last Done: 04/05/25 17:44 Discharge Date/Time: 04/05/25 18:17
[2025-04-04 21:59] LABS: MANUAL DIFF FLAG NO
[2025-04-04 22:01] LABS: Hematocrit 42.9 % (42.0-52.0); Hemoglobin 14.9 g/dl (14.0-18.0); Imm Gran Abs Auto 0.03 X10*3/uL (0.00-0.03); Imm Gran Pct Auto 0.2 % (0.0-0.4); Lymphocytes Absolute Auto 1.5 X10*3/uL (1.2-4.9); Mean Corpuscular HGB Conc 34.7 g/dl (31.0-36.0); Mean Corpuscular Hemoglobin 27.6 pg (27.0-33.0); Mean Corpuscular Volume 79.6 fL (80.0-98.0); NRBC Abs Auto 0.000 X10*3/uL (0.0-0.012); NRBC Pct Auto 0.0 /100WBC (0.0-0.2); Platelet Count 142 X10*3/uL (160-400); Red Blood Count 5.39 X10*6/uL (4.60-5.80); White Blood Count 12.3 X10*3/uL (4.8-10.8)
[2025-04-04 22:15] LABS: Alanine Aminotransferase 53 U/L (0-40); Albumin Level 4.4 g/dL (3.5-5.0); Alkaline Phosphatase 106 U/L (39-117); Anion Gap 14 (12-20); Aspartate Amino Transferase 40 U/L (5-37); Blood Urea Nitrogen 8 mg/dL (9-16); Calcium 9.4 mg/dL (8.4-10.2); Carbon Dioxide 25 mmol/L (22-29); Chloride 101 mmol/L (96-108); Creatinine Clr Calc Pharmacy 135.6; Estimated Glomerular Filt Rate > 60; Magnesium 2.0 mg/dL (1.6-2.6); Potassium 3.8 mmol/L (3.3-5.1); Sodium 136 mmol/L (135-145); Total Protein 8.3 g/dL (6.5-8.0)
--- NOTE | 2025-04-05 | ECG_ITS ---
Test Reason : admite orders Blood Pressure : */* mmHG Vent. Rate : 87 BPM Atrial Rate : 87 BPM P-R Int : 186 ms QRS Dur : 94 ms QT Int : 340 ms P-R-T Axes : 25 15 17 degrees QTcB Int : 409 ms Normal sinus rhythm Normal ECG When compared with ECG of 08-Feb-2024 04:04, No significant change was found Referred By: Luz Gordon Electronically Signed By: LIDA SWARTZ MD
[2025-04-05 01:31] LABS: Resp Syncy Virus RNA Qual PCR NEGATIVE (Negative); SARS COV2 PCR INHOUSE NEGATIVE (Negative)
[2025-04-05 02:26] VITALS: BP 134/84; PULSE 95; RESP 16; TEMP 38.9; O2SAT 98
--- NOTE | 2025-04-05 04:46 | PC.NURSE ---
beginning LP now
[2025-04-05 05:01] VITALS: BP 104/68; PULSE 93; O2SAT 96
--- NOTE | 2025-04-05 05:36 | PM.IMHP ---
History of Present Illness Date of Service: 04/05/25 Attending physician on admission: Merissa Donnelly Chief Complaint: PEOPLES, Fever Patient is a 34-year-old male with past medical history migraines, colitis 2016, recent cholecystectomy for acute cholecystitis February 2024 presents to the emergency department with complaints of occipital headache, neck pain with dizziness and overall decreased oral intake since yesterday. Patient was out on Friday playing softball and then later in the evening was mildly symptomatic with a headache. 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 Patient took a shower and then went to sleep and awakened in the afternoon. Patient's symptoms appear to worsen in regards to that headache noting patient has migraine but he states his symptoms were not like his usual migraine and advocated for patient to be seen in the ED. Patient had taken Tylenol, Motrin with no improvement. Neurological exam in the ED was within normal limits. Patient did present with a max temp of 102.2 degrees. Hemodynamics stable. Workup in the ED included head CT which indicated no acute intracranial findings but there was suggestion of slightly decreased parenchymal attenuation in the posterior occipital region but this could also be considered artifact. Radiologist recommending MRI if clinically indicated. Patient underwent lumbar puncture and CSF fluid initial results are all normal. Meningitis encephalitis panel pending. Patient has a leukocytosis of 12.3. Patient was started on ceftriaxone and acyclovir. Pt also received one dose of decadsron 6 mgs IV. UA and blood cultures are pending. LA pending. Tick-borne panel also ordered. ECG pending. Patient denies any history of HSV exposure, STDs, HIV or hepatitis. Patient also denies any autoimmune illnesses. Ordered CT of the abdomen pelvis and chest and received message from auto electrical technician that there was an abnormal finding in the right lung along the diaphragm. Final read is still pending. Patient has no current respiratory symptoms, productive cough or recent history of COVID flu or RSV. Patient's viral panel was negative. Patient does not smoke, vape or use marijuana. Patient has 2 children at home ages 8 and 13 and both are in good health. Patient denies any recent travel. Patient being admitted for acute febrile illness of unknown origin with headache and neck pain. Review of Systems Review of Systems: Patient reports improving neck pain and headache in the back of his head. Patient denies any visual changes, chest pain, shortness of breath at rest or with exertion, nausea, vomiting or abdominal pain. Patient denies any nausea or constipation issues. Yes all other systems are reviewed and are negative [facility] Medical History (Updated 04/05/25 @ 06:30 by AKIL Lea) Migraine Colitis Cognitive capacity: Alert and orientated x3 Functional capacity: independent ambulation Surgical History Hx laparoscopic cholecystectomy (02/09/24) Social History Alcohol intake: current Alcohol intake frequency: holidays/special occasions only Patient Tobacco Use Status: Never used Tobacco Smoked in Last 30 Days: No Use of substances other than those prescribed or required for medical reasons: No Advance Directives: No Advance Directives Information Provided: No Do you have a plan to hurt others: No Plan service: No Ebola Risk: Travel/Contact With Anyone From Affected Area/s: No Has Patient Experienced Ebola Symptoms: No Meds Allergies Allergy/AdvReac Type Severity Reaction Status Date / Time No Known Allergies Allergy Verified 04/04/25 21:06 Active Medications: Current Medications Sodium Chloride (Ns) 1,000 mls @ 999 mls/hr IV .Q1H1M AGNIESZKA Stop: 04/05/25 06:15 Acyclovir Sodium 500 mg/ (Dextrose) 110 mls @ 110 mls/hr IV ONCE ONE Stop: 04/05/25 06:21 Home Medications ?Medication ?Instructions ?Recorded ?Confirmed ?Last Taken ?Type ibuprofen 400 mg tablet 400 mg PO Q6H PRN Pain 02/08/24 02/20/24 Unknown History Physical Exam Vital Signs and Narrative: Vital Signs: Last Vital Signs Temp 102.1 F H 04/05/25 02:26 Pulse 93 04/05/25 05:01 Resp 16 04/05/25 02:26 BP 104/68 04/05/25 05:01 Pulse Ox 96 04/05/25 05:01 O2 Del Method Room Air 04/05/25 05:01 BMI result Body Mass Index 32.8 Alert and orientated X3, able to give good history. Neuro: CN II-X11 intact, no deficits, visual acuity intact EYES: PERRLA, EOM intact, no papilledema noted, sclerae nonicteric, conjunctivae are pink ENT: hearing intact, no issues with swallowing, uvula midline, lips moist, nares patent no epistaxis Cardiac: S1 S2 RRR, no murmur, no JVD, no edema in Lower ext Pulmonary: lungs clear to ausculation B Abdominal: BS active in all 4 quadrants, no guarding, tenderness, rebounding MSK: strength 5/5 upper and lower extremities : no CVA tenderness no bladder distension Extremities: no edema in lower extremities, PT and DP pulses palpable +2 Psych: mood stable, judgement and insight good Results Labs 04/04/25 21:54 04/04/25 21:54 Labs: Laboratory Results - last 24 hr 04/04/25 21:54 MCV 79.6 L MCH 27.6 MCHC 34.7 RDW 13.9 Plt Count 142 L MPV 9.8 Immature Gran % (Auto) 0.2 Neut % (Auto) 78.2 H Lymph % (Auto) 12.1 L [place] % (Auto) 8.9 Eos % (Auto) 0.2 Baso % (Auto) 0.4 Lymph # (Auto) 1.5 [place] # (Auto) 1.1 Eos # (Auto) 0.0 Baso # (Auto) 0.1 Abs Immat Gran (auto) 0.03 Absolute Neuts (auto) 9.6 H Absolute Nucleated RBC 0.000 Nucleated RBC % (auto) 0.0 Anion Gap 14 Estim Creat Clear Calc 135.6 Estimated GFR > 60 Random Glucose 104 Calcium 9.4 Magnesium 2.0 Total Bilirubin 1.0 AST 40 H ALT 53 H Alkaline Phosphatase 106 Total Protein 8.3 H Albumin 4.4 Influenza Type A (PCR) NEGATIVE Influenza Type B (PCR) NEGATIVE RSV RNA Qual (PCR) NEGATIVE SARS-CoV-2 RNA (RT-PCR) NEGATIVE ECG Prior ECG tracings: not available for review Imaging Radiologist's Impressions: HEAD CT IMPRESSION: 1. No acute intracranial findings. Specifically, no evidence of acute intracranial hemorrhage, mass effect or midline shift. 2. Suggestion of slightly decreased parenchymal attenuation in the posterior occipital region. This could be artifactual however if clinically indicated, MRI may be considered to further evaluate this. Assessment and Plan (1) Acute febrile illness: Status: Acute (2) Headache: Qualifiers: Headache chronicity pattern: episodic headache Headache type: unspecified Intractability: not intractable Qualified Code(s): R51.9 - Headache, unspecified Status: Acute Plan Patient is a 34-year-old male with past medical history migraines, colitis 2016, recent cholecystectomy for acute cholecystitis February 2024 presents to the emergency department with complaints of occipital headache, neck pain with dizziness and overall decreased oral intake since yesterday. Patient was out on Friday playing softball and then later in the evening was mildly symptomatic with a headache. 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 Patient denies any recent travel, exposure to anyone with illness. FUO/ acutre febrile illness/ neck and lower back of the head pain Lumbar puncture completed, results from CSF WNL Pt started on ceftriaxone and acyclovir in the ED, will continue until full CSF panel is back Pt received one dose of Decadron 6 mg IV Viral panel for COVID, RSV and FLU negative Blood cultures and UA pending Lactic Acid pending Tick-borne panel sent (pt has not pets but spends a lot of time outside for work and weekends) CT of the chest, abdomen and pelvis are pending: Per auto electrical technician there is an abnormal finding of the right lung near the diaphragm Headache with hx of Migraine Dilaudid X1 in ED effective ' PEOPLES not like usual migraine CT head with noted findings as aboved involving occipital area, if clinically indicated pt will need MRI Brain Neuro exam and eye exam reassuring HX of coliits 2016 Complete resolve with admissiion and ABX, 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
[2025-04-05 05:45] LABS: Red Blood Cell CSF 0 MM*3; White Blood Cell CSF 2 MM*3
[2025-04-05 05:56] LABS: Lymphocytes CSF 100 %
[2025-04-05] MEDS: iohexoL 350 MG/ML 100 ML INFUS..BTL 85 ML IV (06:09)
[2025-04-05 06:15] VITALS: RESP 18
[2025-04-05] MEDS: Acyclovir Sodium 500 MG in Dextrose 5 % 100 ML 110 MG IV (06:22)
[2025-04-05 07:02] LABS: Appearance Urine Clear; Glucose Urine UA Negative (Negative); PH 6.0 (5.0-9.0); Specific Gravity - Urine <= 1.005 (1.005-1.025); UMIC TRIGGER UA YES
[2025-04-05 08:30] VITALS: TEMP 37.3
[2025-04-05] MEDS: ACYCLOVIR SODIUM IV (08:50)
[2025-04-05] MEDS: DEXTROSE 5% IV (08:50)
[2025-04-05 10:18] LABS: Cholesterol 210 mg/dL (<200); HDL Cholesterol 27 mg/dL (>40); Triglycerides 342 mg/dL (<150)
--- NOTE | 2025-04-05 11:17 | PHA.MEDREC ---
Pharmacy Consult ? Medication Reconciliation Pharmacy has completed the medication reconciliation. Spoke to patient to confirm med list. Per patient, he only takes otc ibuprofen bid prn headache.
--- NOTE | 2025-04-05 12:15 | PC.NURSE ---
Reports feeling better, obb ambulating to bathroom , remains at bedside
--- NOTE | 2025-04-05 14:01 | PC.NURSE ---
Per hospitalist okay to stop NPO diet and resume regular diet
--- NOTE | 2025-04-05 14:29 | MHC.CM.PN ---
PT LIVES WITH FAMILY IS INDEPENDENT HAS A RIDE HOME WHEN DC HE IS INDEPDENT DC PLAN HOME N/S
--- NOTE | 2025-04-05 17:26 | P.DS_ITS ---
DS: Providers Provider Date of Service: 04/05/25 Date of admission: 04/05/25 05:24 Date of discharge: 04/05/25 Primary care physician: None Physician DS: Diagnosis Discharge Diagnosis (1) Acute febrile illness: Status: Acute (2) Headache: Status: Acute (3) PNA (pneumonia): Status: Acute DS: Summary Hospital Course Hospital Course: Patient is a 34-year-old male with past medical history migraines, colitis 2016, recent cholecystectomy for acute cholecystitis February 2024 presents to the emergency department with complaints of occipital headache, neck pain with dizziness and overall decreased oral intake since yesterday. Patient was out on Friday playing softball and then later in the evening was mildly symptomatic with a headache. 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 Patient denies any recent travel, exposure to anyone with illness. FUO/ acutre febrile illness/ neck and lower back of the head pain PNA: Lumbar puncture completed, results from CSF WNL Pt started on ceftriaxone and acyclovir in the ED, Pt received one dose of Decadron 6 mg IV Viral panel for COVID, RSV and FLU negative Blood cultures and UA pending Tick-borne panel sent (pt has not pets but spends a lot of time outside for work and weekends) CT of the chest, abdomen and pelvis showed PNA pt switched to ceftriaxone and azithromycin remained afebrile was able to tolerate food discharged on azithromycin and augmentin to complete the course Headache with hx of Migraine Dilaudid X1 in ED effective ' [place] not like usual migraine CT head non acute Neuro exam and eye exam reassuring resolved HX of coliits 2017 Complete resolve with admissiion and ABX, no detention effects Time Attestation Discharge Coordination Time (in mins): 40 mins Quality: Safe Use of Opioids Does Pt have an Active Cancer Diagnosis on the Problem List?: No Quality: Stroke Does the patient have a stroke diagnosis?: No Physical Exam Vital Signs: Vital Signs: Last Vital Signs Temp 99.1 F 04/05/25 08:30 Pulse 93 04/05/25 05:01 Resp 18 04/05/25 06:15 BP 104/68 04/05/25 05:01 Pulse Ox 96 04/05/25 05:01 O2 Del Method Room Air 04/05/25 05:01 BMI result Body Mass Index 32.8 awake and alert on RA, CTAB abdomen soft non tender neuro ambulating,no focal deficits heart RRR DS: Data Data Completed and Pending Completed studies during hospitalization [Text1]: Procedures Resection of Gallbladder, Percutaneous Endoscopic Approach (02/08/24) Labs on day of discharge: Laboratory Results - last 24 hr 04/04/25 04/05/25 04/05/25 21:54 05:00 05:00 WBC 12.3 H RBC 5.39 Hgb 14.9 Hct 42.9 MCV 79.6 L MCH 27.6 MCHC 34.7 RDW 13.9 Plt Count 142 L MPV 9.8 Immature Gran % (Auto) 0.2 Neut % (Auto) 78.2 H Lymph % (Auto) 12.1 L [place] % (Auto) 8.9 Eos % (Auto) 0.2 Baso % (Auto) 0.4 Lymph # (Auto) 1.5 [place] # (Auto) 1.1 Eos # (Auto) 0.0 Baso # (Auto) 0.1 Abs Immat Gran (auto) 0.03 Absolute Neuts (auto) 9.6 H Absolute Nucleated RBC 0.000 Nucleated RBC % (auto) 0.0 Hold Purple Top Sodium 136 Potassium 3.8 Chloride 101 Carbon Dioxide 25 Anion Gap 14 BUN 8 L Creatinine 1.00 Estim Creat Clear Calc 135.6 Estimated GFR > 60 Random Glucose 104 Lactic Acid Calcium 9.4 Magnesium 2.0 Total Bilirubin 1.0 AST 40 H ALT 53 H Alkaline Phosphatase 106 C-Reactive Protein 16.73 H Total Protein 8.3 H Albumin 4.4 Triglycerides Cholesterol LDL Cholesterol, Calc HDL Cholesterol Urine Color Urine Appearance Urine pH Ur Specific [place] Urine Protein Urine Glucose (UA) Urine Ketones Urine Blood Urine Nitrite Ur Leukocyte Esterase Urine RBC Urine WBC Ur Squamous Epith Cells Urine Bacteria Hyaline Casts CSF Tube Number 2 4 CSF Volume 2.0 CSF Appearance CLEAR CSF Color COLORLESS CSF WBC 2 CSF RBC 0 CSF Lymphocytes 100 CSF Appearance (b) Clear, Colorless CSF Glucose 71 CSF Total Protein 39.5 CSF C.neoform/gat PCR Not Detected CSF CMV DNA (PCR) Not Detected CSF Enterovirus (PCR) Not Detected CSF E. coli K1 (PCR) Not Detected CSF H. influenzae (PCR) Not Detected CSF HSV I (PCR) Not Detected CSF HSV II (PCR) Not Detected CSF HHV 6 (PCR) Not Detected CSF L.monocytogenes PCR Not Detected CSF N. meningitidis PCR Not Detected CSF Parechovirus (PCR) Not Detected CSF S. agalactiae (PCR) Not Detected CSF S. pneumoniae (PCR) Not Detected CSF VZV (PCR) Not Detected Influenza Type A (PCR) NEGATIVE Influenza Type B (PCR) NEGATIVE RSV RNA Qual (PCR) NEGATIVE SARS-CoV-2 RNA (RT-PCR) NEGATIVE 04/05/25 04/05/25 06:37 09:29 WBC RBC Hgb Hct MCV MCH MCHC RDW Plt Count MPV Immature Gran % (Auto) Neut % (Auto) Lymph % (Auto) [place] % (Auto) Eos % (Auto) Baso % (Auto) Lymph # (Auto) [place] # (Auto) Eos # (Auto) Baso # (Auto) Abs Immat Gran (auto) Absolute Neuts (auto) Absolute Nucleated RBC Nucleated RBC % (auto) Hold Purple Top SEE NOTE Sodium Potassium Chloride Carbon Dioxide Anion Gap BUN Creatinine Estim Creat Clear Calc Estimated GFR Random Glucose Lactic Acid 0.6 Calcium Magnesium Total Bilirubin AST ALT Alkaline Phosphatase C-Reactive Protein Total Protein Albumin Triglycerides 342 H Cholesterol 210 H LDL Cholesterol, Calc 115 H HDL Cholesterol 27 L Urine Color Yellow Urine Appearance Clear Urine pH 6.0 Ur Specific [place] <= 1.005 Urine Protein Trace Urine Glucose (UA) Negative Urine Ketones Negative Urine Blood Small (1+) H Urine Nitrite Negative Ur Leukocyte Esterase Negative Urine RBC 0-2 Urine WBC 0-5 Ur Squamous Epith Cells 0-2 Urine Bacteria None Seen Hyaline Casts 0-2 CSF Tube Number CSF Volume CSF Appearance CSF Color CSF WBC CSF RBC CSF Lymphocytes CSF Appearance (b) CSF Glucose CSF Total Protein CSF C.neoform/gat PCR CSF CMV DNA (PCR) CSF Enterovirus (PCR) CSF E. coli K1 (PCR) CSF H. influenzae (PCR) CSF HSV I (PCR) CSF HSV II (PCR) CSF HHV 6 (PCR) CSF L.monocytogenes PCR CSF N. meningitidis PCR CSF Parechovirus (PCR) CSF S. agalactiae (PCR) CSF S. pneumoniae (PCR) CSF VZV (PCR) Influenza Type A (PCR) Influenza Type B (PCR) RSV RNA Qual (PCR) SARS-CoV-2 RNA (RT-PCR) Discharge Plan Discharge Anticipated Discharge Date/Time: 04/05/25 17:25 Patient Disposition: Home, Self-Care Discharge Diagnosis: PNA Referrals: Physician,None [Primary Care Provider, Medical] - 1 Week Discharge Medications: New azithromycin 500 mg tablet 500 mg PO DAILY 5 Days Qty: 5 0RF amoxicillin-pot clavulanate 875-125 mg tablet 1 tab PO BID 5 Days Qty: 10 0RF Continued ibuprofen 400 mg Tablet 200 mg PO BID PRN (Reason: Headache) Discharge Orders: Discharge Order (Routine); Ordered 04/05/25 Ordered By: Laya Granda Activity on Discharge: As tolerated Stand Alone Forms: Patient Portal Discharge page Print Language: Portuguese Care Plan Goals: see below Health Concerns: see below Plan of Treatment: Pt presented with headache, LP was done, CSF was sterile. CT chest ~ PNA, PCP tp follow up on pending labs pt was able to eat and his headache had resolved in am discharged on PO abx Assessment: see above
--- NOTE | 2025-04-05 17:41 | PC.NURSE ---
Patient ate 100% on lunch tray, reports is feeling much better and feels good to discharge home from ED. Provider aware, discharge orders placed.
[2025-04-05 17:42] VITALS: BP 118/63; PULSE 83; RESP 18; TEMP 37.1; O2SAT 97
[2025-04-05 17:44] VITALS: BP 118/63; PULSE 83; RESP 18; TEMP 37.1; O2SAT 97
[2025-04-06 22:08] LABS: A. Phagocytphilium DNA,RT-PCR NOT DETECTED (NOT DETECTED); Babesia Microti DNA, RT-PCR NOT DETECTED (NOT DETECTED); Borrelia Miyamotoi,DNA RT-PCR NOT DETECTED (NOT DETECTED); E.Chaffeensis DNA RT-PCR NOT DETECTED (NOT DETECTED); Lyme(Borrelia ssp)DNA RT-PCR NOT DETECTED (NOT DETECTED)
[2025-04-08 12:24] LABS: VDRL Qualitative CSF Nonreactive (Nonreactive)
== END 2025-04-05 17:28 | disposition home or self-care (01) | DRG 54 ==
LOC: HO.ED 04-05 05:24 → HO.EDOVER 04-05 05:43
PROVIDERS: Nurse Practitioner Family; Admitting Provider Student in an Organized Health Care Education/Training Program; Emergency Provider Emergency Medicine; Visit Provider Hospitalist
DX: R51.9 Headache, unspecified (principal); R50.9 Fever, unspecified; Z20.822 Contact with and (suspected) exposure to COVID-19
CPT/HCPCS: 36415; 70450; 71260; 74178; 80053; 80061; 81001; 81003; 82945; 83605; 83735; 84157; 85025; 86140; 86592; 87015; 87040; 87070; 87205; 87468; 87469; 87476; 87478; 87483; 87484; 87637; 87798; 89051; 93005; 99285; J0131; J0133; J0456; J0696; J1100; J1171; J1200; J2765; Q9967

== ENCOUNTER → 2025-04-04 21:14 | Outpatient (BNV) | payer SELFPAY | PROVIDERS: Visit Provider Radiology Diagnostic Radiology | DX: R51.9 Headache, unspecified (principal) | CPT/HCPCS: 70450 ==

== ENCOUNTER → 2025-04-05 04:46 | Outpatient (BNV) | payer BC, SELFPAY | PROVIDERS: Admitting Provider Student in an Organized Health Care Education/Training Program; Emergency Provider Emergency Medicine; Visit Provider Radiology Vascular & Interventional Radiology | DX: J18.0 Bronchopneumonia, unspecified organism (principal) | CPT/HCPCS: 71260 ==

== ENCOUNTER 2025-04-05 05:24 | Outpatient (BNV) | payer SELFPAY | END 2025-04-05 06:43 | PROVIDERS: Admitting Provider Student in an Organized Health Care Education/Training Program; Emergency Provider Emergency Medicine; Visit Provider Internal Medicine Cardiovascular Disease | DX: Z13.6 Encounter for screening for cardiovascular disorders (principal) | CPT/HCPCS: 93010 ==

== ENCOUNTER → 2025-04-05 05:24 | Outpatient (BNV) | payer SELFPAY | PROVIDERS: Admitting Provider Student in an Organized Health Care Education/Training Program; Emergency Provider Emergency Medicine; Visit Provider Nurse Practitioner Family | DX: R50.9 Fever, unspecified (principal); R51.9 Headache, unspecified; J18.9 Pneumonia, unspecified organism | CPT/HCPCS: 99235; 99499 ==